=== PATIENT | female | born 1990 | race Caucasian/White ===

== ENCOUNTER → 2016-09-29 06:00 | Day surgery (SDC) | payer OTHER ==
[~2016-09-29] VITALS: Ht 175.3 cm; Wt 71.2 kg
[~2016-09-29 06:00] MED LIST: HYDROCODONE-APA1 TAB PO; NORCO 7.5/325 T1 TA1 PO; OMEPRAZOLE20 M1 PO; PAXIL30 MG PO; SEROQUEL50 MG PO
[2016-09-29 08:07] LABS: BASOPHILS 0.5 % (0-2); EOSINOPHILS 2.3 % (0-7); HEMATOCRIT 42.6 % (36.0-48.0); HEMOGLOBIN 13.6 g/dL (12-16); IMMATURE GRANULOCYTES 0.2 % (0-5); MCH 30.6 pg (26.0-34.0); MCHC 31.9 g/dL (31.0-37.0); MCV 95.9 fL (80.0-100.0); MEAN PLATELET VOLUME 10.6 fL (7.4-10.4); PLATELET COUNT 257 10x3/uL (130-400); RBC 4.44 10x6/uL (4.00-5.40); RDW 15.3 % (11.5-14.5); WBC 8.7 10x3/uL (4.8-10.8)
[2016-09-29 08:08] LABS: HCG URINE NEGATIVE (NEGATIVE)
[2016-09-29 08:11] VITALS: BP 113/78; Ht 175.3 cm; Wt 71.2 kg
[2016-09-29 08:26] LABS: CALCIUM 9.2 mg/dL (8.5-10.1); CARBON DIOXIDE 22.2 mmol/L (21.0-32.0); CHLORIDE - SERUM 102 mmol/L (98-107); CREATININE - SERUM 0.5 mg/dL (0.6-1.3); POTASSIUM - SERUM 4.5 mmol/L (3.5-5.1); SODIUM 140 mmol/L (136-145); UREA NITROGEN 15 mg/dL (7-18); eGFR NON AFRICAN AMERICAN > 90 mL/min (90-120)
[2016-09-29 08:34] LABS: CALC OSMOLALITY 278 mosm/kg (275-300); GLUCOSE 78 mg/dL (74-106)
--- NOTE | 2016-09-29 15:26 | NUR ---
1510 PT ESCORTED OUT BY VOLUNTEER ACCOMPANIED BY FAMILY.
== END | disposition home or self-care (01) ==
LOC: D.OPS 06:00 → D.PAN 09:45 → D.OPS 09:45
PROVIDERS: Surgery
DX: K81.1 Chronic cholecystitis (principal); F17.200 Nicotine dependence, unspecified, uncomplicated; A74.81 Chlamydial peritonitis

== ENCOUNTER 2020-07-01 08:03 | Day surgery (SDC) | payer MEDICARE, OTHER ==
[~2020-07-01] VITALS: Ht 175.3 cm; Wt 65.9 kg
[~2020-07-01 08:03] MED LIST changes: +GAS-X180 MG PO; +SINGULAIR10 MG PO; +VITAMIN D-32000 UNIT PO
[2020-07-01 08:27] LABS: HEMATOCRIT 45.2 % (36.0-48.0); HEMOGLOBIN 14.9 g/dL (12-16); MCH 30.7 pg (26.0-34.0); MCV 93.2 fL (80.0-100.0); MEAN PLATELET VOLUME 9.6 fL (7.4-10.4); RBC 4.85 10x6/uL (4.00-5.40); RDW 12.6 % (11.5-14.5); WBC 9.2 10x3/uL (4.8-10.8)
[2020-07-01 08:43] LABS: HCG SERUM NEGATIVE (NEGATIVE)
[2020-07-01] MEDS ORDERED: ATIVAN0.5 MG (09:25)
[2020-07-01 09:31] VITALS: BP 108/69; Ht 175.3 cm; Wt 65.9 kg
--- NOTE | 2020-07-01 09:40 | NUR ---
dr. Arroyo notified and reviewed patient's behavior and assessment results. Patient is a low risk per Dr. arroyo. Dr. Arroyo stated to give resources to patient at time of discharge. No further orders at this time. Resources reviewed and patient and Patient verbalizied understanding. Pt. denies SI at this time. Patient reports that she has alot of anxiety. Pt. reports that she started taking Paxil for anxiety/ depression and Ativan for anxiety around month ago. Pt. reports the new medications are working for her. Patient reports she is having a hysterectomy today due to irregular menstruation and her hormones are all over the place. Patient has weekly visits with psychiatrist Dr. gilbert Aburto per patient report.
--- NOTE | 2020-07-01 14:22 | NUR ---
1410 PT WAS UNABLE TO VOID WHEN UP TO BR, BLADDER SCANNER 226, LEMON AKHIOK SERVED.
--- NOTE | 2020-07-01 14:26 | NUR ---
1425 PT. VOIDS QS, RELEASED IN WC.
== END 2020-07-01 14:27 | disposition home or self-care (01) ==
LOC: D.OPS 08:03
PROVIDERS: Anesthesiology; ATTEND Obstetrics & Gynecology Maternal & Fetal Medicine
DX: N93.9 Abnormal uterine and vaginal bleeding, unspecified (principal); N94.6 Dysmenorrhea, unspecified; R10.2 Pelvic and perineal pain; J45.909 Unspecified asthma, uncomplicated